=== PATIENT | male | born 1985 ===

== ENCOUNTER 2024-03-12 18:45 | Outpatient (REF) | payer SELFPAY ==
[2024-03-12 21:36] LABS: TSH (W/Ref FT4) 0.67 uIU/mL (0.36-3.74)
[2024-03-13 19:33] LABS: Thyroperoxidase Antibody 445 U/mL (<=60)
[2024-03-13 19:36] LABS: Thyroglobulin Antibody 42 U/mL (<=60)
== END 2024-03-12 18:46 | disposition home or self-care (01) ==
LOC: NCHCN 18:45
PROVIDERS: Visit Provider Family Medicine
DX: E03.9 Hypothyroidism, unspecified (principal)
CPT/HCPCS: 84443; 86376; 86800